=== PATIENT | male | born 1980 ===

== ENCOUNTER 2020-08-21 20:37 | Emergency (ER) | payer SELFPAY ==
[2020-08-21 21:14] VITALS: BP 132/82
[2020-08-21] MEDS ORDERED: FAMOTIDINE 20 MG/2 ML INJ IV ONE (22:45)
[2020-08-21] MEDS ORDERED: ASPIRIN 325 MG TAB PO ONE (22:45)
[2020-08-21 23:05] LABS: Basophils # (Auto) 0.1 K/mm3 (0.0-0.1); Basophils % (Auto) 0.9 % (0.0-1.8); Eosinophils # (Auto) 0.3 K/mm3 (0.0-0.4); Eosinophils % (Auto) 2.8 % (0.0-4.3); Lymphocytes # (Auto) 4.5 K/mm3 (1.2-5.4); Mean Corpuscular HGB Conc 36 % (32-34); Mean Corpuscular Volume 89 fl (84-94); Monocytes # (Auto) 0.7 K/mm3 (0.0-0.8); Monocytes % (Auto) 7.6 % (0.0-7.3); Platelet Count 265 K/mm3 (140-440); Red Blood Count 4.74 M/mm3 (3.65-5.03); Red Cell Distribution Width 12.7 % (13.2-15.2)
[2020-08-21 23:06] LABS: Hemoglobin 15.1 gm/dl (11.8-15.2)
--- NOTE | 2020-08-21 23:21 | XRay Report ---
CHEST 1 VIEW 08/21/2020 10:05 PM INDICATION / CLINICAL INFORMATION: CHEST PAIN. COMPARISON: None available. FINDINGS: SUPPORT DEVICES: None. HEART / MEDIASTINUM: No significant abnormality. LUNGS / PLEURA: No significant pulmonary or pleural abnormality. No pneumothorax. ADDITIONAL FINDINGS: No significant additional findings. IMPRESSION: 1. No acute findings. Signer Name: Chandra Hall MD Signed: 08/21/2020 11:16 PM Workstation Name: [id number]
[2020-08-21 23:32] LABS: Alanine Aminotransferase 29 units/L (7-56); Blood Urea Nitrogen 17 mg/dL (9-20); Calcium 9.8 mg/dL (8.4-10.2); Hemolysis Index 12
[2020-08-21 23:35] LABS: BUN/Creatinine Ratio 24
--- NOTE | 2020-08-21 23:48 | Ultrasound Report ---
ULTRASOUND ABDOMEN, LIMITED (RIGHT UPPER QUADRANT) INDICATION: RUQ pain COMPARISON: None available. LIMITATIONS: Bowel gas FINDINGS: Pancreas: Poorly seen Liver: Normal. Gallbladder: Normal. Bile ducts: Normal. Common Bile Duct measures 5 mm. Right Kidney: Visualized portions show no abnormality. Free fluid: None. Additional Findings: None. IMPRESSION: No acute abnormalities are seen. Signer Name: Jeremias Garcia MD Signed: 08/21/2020 11:43 PM Workstation Name: [id number]
--- NOTE | 2020-08-22 02:15 | Emergency Department Report ---
ED General Adult HPI - General Chief complaint: Dyspnea/Respdistress Stated complaint: SOB/CHEST TIGHTNESS/AB PAIN Source: patient Mode of arrival: Ambulatory Limitations: Language Barrier - History of Present Illness Initial comments: Patient is a 39-year-old male with a history of hyperlipidemia, hypertension, anxiety and depression who presents to the ED with complaint of right upper quadrant abdominal pain, chest tightness and shortness of breath, jitteriness and tingling sensation on upper and lower extremities bilaterally for the last 2 days intermittently worse in the last 12 hours. Patient states that he initially he believed that he was having anxiety attack but decided come to the ED for evaluation. Patient states that he has previously experienced similar symptoms and he was told that it was anxiety. Patient denies nausea and vomiting, dizziness, syncope, seizures, fever, chills, cough, diarrhea, dysuria, sore throat, nasal and sinus congestion, palpitations, neck pain, back pain, hematemesis or hemoptysis. MD Complaint: Shortness of breath, chest tightness, right upper quadrant abdominal pain -: Sudden, days(s) (2) Location: chest, abdomen Radiation: non-radiation Severity scale (0 -10): 4 Quality: aching, dull Consistency: intermittent Improves with: none Worsens with: none Associated Symptoms: denies other symptoms, chest pain (Chest tightness), shortness of breath. denies: confusion, cough, diaphoresis, fever/chills, headaches, loss of appetite, malaise, nausea/vomiting, rash, seizure, syncope, weakness Treatments Prior to Arrival: none - Related Data Previous Rx's Medication Instructions Recorded Last Taken Type Dicyclomine [Bentyl] 20 mg PO Q6H PRN #20 tablet 08/22/20 Unknown Rx Famotidine [Pepcid] 20 mg PO BID #60 tablet 08/22/20 Unknown Rx hydrOXYzine PAMOATE [Vistaril] 25 mg PO Q6HR PRN #30 capsule 08/22/20 Unknown Rx Allergies Allergy/AdvReac Type Severity Reaction Status Date / Time No Known Allergies Allergy Unverified 08/21/20 21:15 ED Review of Systems ROS: Stated complaint: SOB/CHEST TIGHTNESS/AB PAIN Other details as noted in HPI Constitutional: denies: chills, fever Eyes: denies: eye pain, eye discharge, vision change ENT: denies: ear pain, throat pain Respiratory: shortness of breath. denies: cough, wheezing Cardiovascular: chest pain (Chest tightness). denies: palpitations Endocrine: no symptoms reported Gastrointestinal: abdominal pain (Right upper quadrant abdominal pain). denies: nausea, vomiting, diarrhea Genitourinary: denies: urgency, dysuria Musculoskeletal: denies: back pain, joint swelling, arthralgia Skin: denies: rash, lesions Neurological: denies: headache, weakness, paresthesias Psychiatric: denies: anxiety, depression Hematological/Lymphatic: denies: easy bleeding, easy bruising ED Past Medical Hx - Past Medical History Previous Medical History?: No Hx Diabetes: Yes (on oral supplement?) Hx Psychiatric Treatment: Yes (anxiety) Additional medical history: Hyperlipidemia - Surgical History Past Surgical History?: No - Social History Smoking Status: Never Smoker Substance Use Type: Alcohol, Marijuana - Medications Home Medications: Home Medications Medication Instructions Recorded Confirmed Last Taken Type Dicyclomine [Bentyl] 20 mg PO Q6H PRN #20 tablet 08/22/20 Unknown Rx Famotidine [Pepcid] 20 mg PO BID #60 tablet 08/22/20 Unknown Rx hydrOXYzine PAMOATE [Vistaril] 25 mg PO Q6HR PRN #30 capsule 08/22/20 Unknown Rx ED Physical Exam - General Limitations: Language Barrier General appearance: alert, in no apparent distress, anxious - Head Head exam: Present: atraumatic, normocephalic, normal inspection - Eye Eye exam: Present: normal appearance, PERRL, EOMI - ENT ENT exam: Present: normal exam, normal orophraynx, mucous membranes moist, TM's normal bilaterally, normal external ear exam - Neck Neck exam: Present: normal inspection, full ROM - Respiratory Respiratory exam: Present: normal lung sounds bilaterally. Absent: respiratory distress, wheezes, rales, rhonchi, chest wall tenderness, accessory muscle use, decreased breath sounds, prolonged expiratory - Cardiovascular Cardiovascular Exam: Present: regular rate, normal rhythm, normal heart sounds. Absent: systolic murmur, diastolic murmur, rubs, gallop - GI/Abdominal GI/Abdominal exam: Present: soft, tenderness (Palpable mild right upper quadrant tenderness), normal bowel sounds. Absent: guarding, rebound, hyperactive bowel sounds, hypoactive bowel sounds, organomegaly - Extremities Exam Extremities exam: Present: normal inspection, full ROM, normal capillary refill - Back Exam Back exam: Present: normal inspection, full ROM. Absent: tenderness, CVA tenderness (R), CVA tenderness (L), muscle spasm, paraspinal tenderness, vertebral tenderness - Neurological Exam Neurological exam: Present: alert, oriented X3, CN II-XII intact, normal gait, reflexes normal - Psychiatric Psychiatric exam: Present: normal affect, normal mood - Skin Skin exam: Present: warm, dry, intact, normal color. Absent: rash ED Course Vital Signs 08/21/20 21:10 Temperature 98.5 F Pulse Rate 70 Respiratory 18 Rate Blood Pressure 132/82 O2 Sat by Pulse 99 Oximetry ED Medical Decision Making - Lab Data Result diagrams: 08/21/20 22:52 08/21/20 22:52 - EKG Data EKG shows normal: sinus rhythm Rate: bradycardia - EKG Data Interpretation: normal EKG 08/22/20 02:18 EKG shows sinus bradycardia with a ventricular rate of 45 bpm and probable LVH but no other acute abnormalities. - Radiology Data Radiology results: report reviewed, image reviewed [facility] [address] [place] [address] Ultrasound Report Signed Patient: LUCIA BENTON MR#: [id number] : 1980 Acct:[id number] Age/Sex: 39 / M ADM Date: 08/21/20 Loc: ED Attending Dr: Ordering Physician: SRI DUARTE Date of Service: 08/21/20 Procedure(s): US abdomen limited Accession Number(s): [id number] cc: SRI DUARTE ULTRASOUND ABDOMEN, LIMITED (RIGHT UPPER QUADRANT) INDICATION: RUQ pain COMPARISON: None available. LIMITATIONS: Bowel gas FINDINGS: Pancreas: Poorly seen Liver: Normal. Gallbladder: Normal. Bile ducts: Normal. Common Bile Duct measures 5 mm. Right Kidney: Visualized portions show no abnormality. Free fluid: None. Additional Findings: None. IMPRESSION: No acute abnormalities are seen. Signer Name: Jeremias Garcia MD Signed: 08/21/2020 11:43 PM Workstation Name: [id number] Transcribed By: GJ Dictated By: Jeremias Garcia MD Electronically Authenticated By: Jeremias Garcia MD Signed Date/Time: 08/21/202342 DD/ 41 TD/TT: [facility] [address] [place] [address] XRay Report Signed Patient: LUCIA BENTON MR#: [id number] : 1980 Acct:[id number] Age/Sex: 39 / M ADM Date: 08/21/20 Loc: ED Attending Dr: Ordering Physician: SRI DUARTE Date of Service: 08/21/20 Procedure(s): XR chest 1V ap Accession Number(s): [id number] cc: SRI DUARTE Fluoro Time In Minutes: CHEST 1 VIEW 08/21/2020 10:05 PM INDICATION / CLINICAL INFORMATION: CHEST PAIN. COMPARISON: None available. FINDINGS: SUPPORT DEVICES: None. HEART / MEDIASTINUM: No significant abnormality. LUNGS / PLEURA: No significant pulmonary or pleural abnormality. No pneumothorax. ADDITIONAL FINDINGS: No significant additional findings. IMPRESSION: 1. No acute findings. Signer Name: Chandra Willingham MD Signed: 08/21/2020 11:16 PM Workstation Name: [id number] Transcribed By: Dictated By: CHANDRA WILLINGHAM Electronically Authenticated By: CHANDRA WILLINGHAM Signed Date/Time: 08/21/202315 DD/ 15 TD/TT: - Medical Decision Making This is a 39-year-old male with a history of hyperlipidemia, hypertension, anxiety and depression who presents to the ED with complaint of right upper quadrant and epigastric abdominal pain, chest tightness and shortness of breath, jitteriness and tingling sensation on upper and lower extremities bilaterally for the last 2 days intermittently worse in the last 12 hours. Patient states that he initially he believed that he was having anxiety attack but decided come to the ED for evaluation. Patient states that he has previously experienced similar symptoms and he was told that it was anxiety. In the ED, patient is alert and oriented x3 and is not in any distress but anxious in triage but hemodynamically stable. EKG shows sinus bradycardia with a ventricular rate of 45 bpm with a probable LVH. All lab test results were reviewed and are all nonactionable including initial and repeat troponin levels. Chest x-ray showed no acute cardiopulmonary abnormalities or pneumonitis. Right upper quadrant gallbladder ultrasound showed no sonographic evidence of gallbladder abnormalities. Patient was treated in the ED with aspirin and Pepcid. On reevaluation, patient felt better, fell asleep in the ED but arousable and is hemodynamically stable. Based on the history and physical exam findings, lab test results, EKG report and imaging reports, patient symptoms are likely due to anxiety and GERD. Patient was therefore discharged home on medications and advised to follow-up with his primary care physician in 3 to 5 days for reevaluation or return to the ED immediately if symptoms get worse. - Differential Diagnosis GERD; anxiety; costochondritis; gallstones; ACS; pneumonia Critical care attestation.: If time is entered above; I have spent that time in minutes in the direct care of this critically ill patient, excluding procedure time. ED Disposition Clinical Impression: Abdominal pain in male, Anxiety as acute reaction to exceptional stress, Nonspecific chest pain GERD (gastroesophageal reflux disease) Qualifiers: Esophagitis presence: esophagitis presence not specified Qualified Code(s): K21.9 - Gastro-esophageal reflux disease without esophagitis Disposition: DC-01 TO HOME OR SELFCARE Is pt being admited?: No Does the pt Need Aspirin: No Condition: Stable Instructions: Nonspecific Chest Pain, Adult, [id number], Abdominal Pain, Adult, [id number], Heartburn, [id number], Gastroesophageal Reflux Disease, Adult, [id number] Additional Instructions: All lab test results were reviewed and are all nonactionable. EKG shows sinus bradycardia with no acute abnormalities. Chest x-ray shows no acute cardiopulmonary abnormalities or pneumonitis. Gallbladder ultrasound was unremarkable. Therefore your symptoms are likely due to GERD or acid reflux worsened by your anxiety. Therefore take medication with food, drink plenty of fluids and follow-up with your primary care physician in 3 to 5 days for reevaluation. Return to ED immediately if symptoms get worse Prescriptions: Dicyclomine [Bentyl] 20 mg PO Q6H PRN #20 tablet PRN Reason: Pain , Severe (7-10) Famotidine [Pepcid] 20 mg PO BID #60 tablet hydrOXYzine PAMOATE [Vistaril] 25 mg PO Q6HR PRN #30 capsule PRN Reason: Anxiety Referrals: [facility] [Provider Group] - 3-5 Days Time of Disposition: 02:20 Print Language: NAMIBIAN
--- NOTE | 2020-08-22 13:39 | Electrocardiograph Report ---
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
== END 2020-08-22 03:00 | disposition home or self-care (01) ==
LOC: ED 20:37
DX: K21.9 Gastro-esophageal reflux disease without esophagitis (principal); R10.11 Right upper quadrant pain; R07.89 Other chest pain; F41.1 Generalized anxiety disorder; F43.0 Acute stress reaction; E11.9 Type 2 diabetes mellitus without complications; E78.5 Hyperlipidemia, unspecified; F12.90 Cannabis use, unspecified, uncomplicated; I10 Essential (primary) hypertension; Z79.899 Other long term (current) drug therapy
CPT/HCPCS: 36415; 71045; 76705; 80053; 83690; 83880; 84484; 85025; 93005; 96374